=== PATIENT | female | born 1930 | race Caucasian/White ===

== ENCOUNTER → 2016-08-28 | Outpatient (CLI) | payer MEDICARE, OTHER ==
--- NOTE | 2016-08-29 05:13 | HKNOTE ---
DATE OF SERVICE: 08/28/2016 HISTORY OF PRESENT ILLNESS: The patient has had severe degenerative osteoarthritis of the right kne e. She was last seen on 02/10/2016 when she was given a cortisone injection. The pain has now retu rned and ____. She wonders "if there is anything else [we] can inject." PHYSICAL EXAMINATION: Clinically, she has severe degenerative osteoarthritis of her right knee. MANAGEMENT: The patient wanted to discuss knee replacement surgery. We spent considerable time dis cussing knee replacement surgery and what is involved. She was given my booklet on knee arthritis, and she was also told to have her daughter look at my website, [employer]. When she returns here, we will continue to give her cortisone injections as needed. She will be see n again as necessary for further evaluation and treatment. Dictated By: CHEVY HUBBARD/MARIVEL Conf#: [id number] DID#: [id number]
--- NOTE | 2016-08-29 09:04 | RADRPT ---
PROCEDURE: XR right knee. CLINICAL INDICATION: Knee pain TECHNIQUE: AP weightbearing, lateral weightbearing and sunrise views are available for review. COMPARISON: 10/11/2015 FINDINGS: There is moderate osteoarthrosis involving the medial tibial femoral compartment and mild osteoarthr osis involving the patellofemoral compartment. This is associated with joint space narrowing, subcho ndral sclerosis and osteophytosis. There is otherwise normal mineralization, architecture and alignment. No fractures are identified. No osseous lesions are identified. The soft tissues are unremarkable. IMPRESSION: Moderate osteoarthrosis involving the medial tibial femoral compartment and mild osteoarthrosis invo lving the patellofemoral compartment. RPTAT: [facility] .Bonifacio Lou MD, MD Date Time Electronically viewed and signed by .Bonifacio Lou MD, on 08/29/2016 09:04 .B/
== END | disposition home or self-care (01) ==
LOC: HKI 13:47
DX: M25.561 Pain in right knee (principal); M17.11 Unilateral primary osteoarthritis, right knee
CPT/HCPCS: 20610; 73562; G0463

== ENCOUNTER → 2016-12-05 | Outpatient (CLI) | payer MEDICARE, OTHER ==
--- NOTE | 2016-12-05 16:12 | RADRPT ---
PROCEDURE: XR Knees. CLINICAL INDICATION: Bilateral knee pain. TECHNIQUE: Total of six views. Frontal, oblique, and lateral views of both knees. COMPARISON: Right knee radiographs dated 08/28/2016. FINDINGS: There is no fracture or dislocation. The soft tissues are normal. There are degenerative changes with osteophytes arising from all 3 joint compartment margins that. There is bilateral medial joint are narrowing and lateral patellofemoral joint compartment narrowing . There is no lytic or blastic lesion. There is no radiopaque foreign body. IMPRESSION: 1. Moderate degenerative changes of both knees. 2. No acute abnormality. RPTAT: QQ .Julien Joshi MD, MD Date Time Electronically viewed and signed by .Julien Joshi MD, MD on 12/05/2016 16:12 .R/
--- NOTE | 2016-12-06 06:06 | HKNOTE ---
DATE OF SERVICE: 12/05/2016 MAIN COMPLAINT: Pain in both knees. HISTORY OF MAIN COMPLAINT: The patient is given cortisone injections into both knees in August 2016 and this gave her great relief from her pain. She comes in requesting a repeat injection. PHYSICAL EXAMINATION: GENERAL: Patient is a remarkably youthful looking 86-year-old female. VITAL SIGNS: Height 5 foot 1 inch, weight 149, pounds, blood pressure 125/80, and temperature 98.4. On physical examination unchanged since the last visit. DIAGNOSIS: Degenerative osteoarthritis of both knees. MANAGEMENT: Under sterile condition given injection of 2 cc of Kenalog and 6 cc of 2 percent lidocaine into each knee, and she will be seen again as necessary. Dictated By: Sae Cabrera MD /yolanda/thelma /Document#: [id number]
== END | disposition home or self-care (01) ==
LOC: HKI 13:33
DX: M25.561 Pain in right knee (principal); M25.562 Pain in left knee; M17.0 Bilateral primary osteoarthritis of knee
CPT/HCPCS: 20610; 73562; G0463

== ENCOUNTER → 2017-04-01 | Outpatient (CLI) | END | disposition home or self-care (01) ==

== ENCOUNTER → 2017-07-03 | Outpatient (CLI) | END | disposition home or self-care (01) ==

== ENCOUNTER → 2017-08-04 | Outpatient (CLI) | END | disposition home or self-care (01) ==